=== PATIENT | male | born 1965 | race Caucasian/White ===

== ENCOUNTER → 2024-05-29 | Outpatient (CLI) | payer OTHER ==
[~2024-05-29] MED LIST: HYDACE10B PO
[2024-05-29 11:57] LABS: Creatinine Urine 56.9 mg/dL (27.00-270.00); Protein, Urine Quantitative 30.9 mg/dL (0.0-11.9)
== END | disposition home or self-care (01) ==
LOC: LAB 07:00 → LAB SHORT 07:00 → LAB FUT 05-22 08:10
PROVIDERS: Internal Medicine Nephrology
DX: N18.30 Chronic kidney disease, stage 3 unspecified (principal); D63.1 Anemia in chronic kidney disease; N13.30 Unspecified hydronephrosis; R32 Unspecified urinary incontinence; N20.0 Calculus of kidney; R76.9 Abnormal immunological finding in serum, unspecified; R94.5 Abnormal results of liver function studies; R94.6 Abnormal results of thyroid function studies; D50.9 Iron deficiency anemia, unspecified; D52.8 Other folate deficiency anemias; D51.8 Other vitamin B12 deficiency anemias
CPT/HCPCS: 81050; 82043; 82570; 84156